=== PATIENT | male | born 1965 | race Caucasian/White ===

== ENCOUNTER 2021-11-03 15:25 | Emergency (ER) | payer OTHER, SELFPAY ==
[2021-11-03 15:27] VITALS: BP 134/75; PULSE 86; RESP 16; TEMP 38.2; O2SAT 96; BMI 38.0
--- NOTE | 2021-11-03 17:02 | EDS_ITS ---
HPI History of Present Illness Chief Complaint: Cough Informant: patient Onset/Context/Timing Onset: Weeks Context: gradual Timing: Continuous Current Severity: Mild Maximum Severity: Mild Worsened by: Coughing Relieved by: Nothing Associated Symptoms cough and fever Chest Pain: Positive for None Narrative Narrative: 56-year-old male prior colectomy for perforated colon. There home Covid test that was positive. States his symptoms started around Thanksgiving so he is day 10 of reported Covid. He has had fever chills myalgias. He has loose stools. Mild dyspnea. No hemoptysis. No abdominal pain. He is unvaccinated against Covid. 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 Cough and shortness of breath. Review of Systems ROS Unobtainable: Denies due to encephalopathy Constitutional Constitutional ED: Denies fever(s) Eyes Eyes: Denies change in vision ENT ENT ED: Denies ear pain Respiratory/Chest Respiratory/Chest: Reports cough and dyspnea Gastrointestinal Gastrointestinal: Reports diarrhea; Denies abdominal pain, nausea or vomiting Genitourinary Genitourinary ED: Denies dysuria Musculoskeletal Musculoskeletal: Reports myalgias Integumentary Denies rash Neurologic Neurologic: Denies headache(s) Psychiatric Psychiatric: Denies depression Endocrine Endocrinology: Denies polyuria Hematologic/Lymphatic Hematologic/Lymphatic: Denies easy bruising Allergic/Immunologic Allergic/Immunologic ED: Denies urticaria EXAM Physical Exam Narrative Exam Narrative: Well-appearing middle-aged male vital signs stable with a pulse ox 96% on room air no signs hypoxia. He does have a low-grade temperature 100.7. HEENT exam dry mucous memories. Neck nontender no lymphadenopathy. Lungs clear to auscultation bilaterally. Heart regular rhythm no murmur rate about 90. Abdomen soft nondistended normal bowel sounds no peritoneal signs. Healing midline incision from a colectomy. Colostomy bag right lower quadrant. No signs of obstruction. Moving all 4 extremities. No edema. Calves nontender. Neurologically is awake and alert. Moving all 4 extremities normal strength. Const Vital Signs: 11/03/21 15:27 11/03/21 16:32 11/03/21 18:00 Temperature 100.7 F H Temperature Source Oral Pulse Rate 86 83 Respiratory Rate 16 16 Respiratory Pattern Normal Blood Pressure 134/75 H 125/67 H Blood Pressure Mean 94 86 Pulse Ox 96 93 Oxygen Delivery Method Room Air Room Air Positive well nourished, well developed and obese; Negative for cachectic, contractures or unkempt General Appearance ED: well developed and NAD; Negative for unkempt, cachectic, contractures or pallor Nutritional Appearance: obese; Negative for cachectic HEENT Reports dry mucous membranes atraumatic; Negative for trauma Mouth ED: Yes dry mucous membranes Mouth: dry mucous membranes Eyes PERRL and EOMs intact bilaterally Neck no lymphadenopathy, supple, no meningeal signs and no JVD General: Negative for tenderness Resp normal respiratory effort and clear to auscultation bilaterally Auscultation: Negative for rales, rhonchi or wheezes Cardio regular rate, regular rhythm, S1 normal heart sound, S2 normal heart sound and no murmurs GI non-tender, non-distended and no masses GI Narrative: Healing midline colectomy incision. Right lower quadrant colostomy bag. Auscultation: normoactive bowel sounds Palpation: soft; Negative for tender, guarding or rebound tenderness present Back/Spine normal to inspection Extremity normal to inspection General Extremety ED: Negative for edema or tenderness General Extremity: Negative for edema Neuro oriented x3 Sensorium / Orientation: alert, oriented to person, oriented to place and oriented to time; Negative for orientation impaired, confused, lethargic or stuporous Motor Exam: strength 5/5 throughout Psych mental status grossly normal Appearance: Negative for unkempt Thought Process: normal thought process Skin no wounds General Skin Exam: Negative for jaundice or pallor Lesions: no lesions Rashes: no rashes MDM MDM MDM Narrative Medical decision making narrative: Middle-age male unvaccinated reportedly Covid now for for 8 days. He will be treated with IV fluids screening labs and chest x-ray. Vital signs are stable. Repeat exam patient is doing well. Discussed with the patient. He definitely has Covid but he is not hypoxic he is comfortable being discharged home and will be continued on Decadron. He will be referred to monoclonal antibody therapy because technically is 10-day will be Friday. Lab Data Attestation: I reviewed the patient's lab results. Lab results narrative: CBC shows a white count 3.9. Hemoglobin 14.2. Platelets 106. Electrolytes sodium 132 gap 6 normal BUN and creatinine. Glucose 113. Labs: Laboratory Results - last 24 hr 11/03/21 11/03/21 17:15 17:15 WBC 3.9 L RBC 5.07 Hgb 14.2 Hct 43.4 MCV 85.6 MCH 28.0 MCHC 32.7 RDW Std Deviation 43.9 RDW Coeff of Sally 14.1 Plt Count 106 L MPV 10.6 Immature Gran % (Auto) 0.300 Neut % (Auto) 68.1 Lymph % (Auto) 18.2 L [place] % (Auto) 12.8 H Eos % (Auto) 0.3 Baso % (Auto) 0.3 Absolute Neuts (auto) 2.7 Absolute Lymphs (auto) 0.71 L Nucleated RBC % 0 Sodium 132 L Potassium 4.1 Chloride 96 L Carbon Dioxide 30.0 Anion Gap 6 BUN 11 Creatinine 0.94 Estim Creat Clear Calc 89.52 Est GFR (MDRD) Af Amer 106 Est GFR (MDRD) Non-Af 87 BUN/Creatinine Ratio 11.6 Glucose 113 H Calcium 8.3 L Radiography Chest X-Ray - ED: 1 View, Read by ED Physician, Read by Radiologist, Right Infiltrate and Left Infiltrate Diagnostic Testing: Clinical Impression(s) from Imaging Studies Chest X-Ray 11/03/21 17:34 IMPRESSION: Extensive bilateral Covid pneumonia. Electronically Signed: Manuela Chiu MD at 18:02 EST Tel , Service support , Chest x-ray, portable, single view interpreted myself the radiologist shows Covid pneumonitis with bilateral patchy infiltrates. Discharge Plan Triage Chief Complaint: Cough ED Provider: Riley Crow Dx/Rx/DC Orders Clinical Impression: COVID-19 Instructions: Human Coronaviruses Prescriptions: New dexamethasone [Decadron] 6 mg tablet 6 mg PO DAILY 10 Days Qty: 10 RF: 0 Other Ambulatory Orders: COVID Outpatient Monoclonal Antibody Referral (Routine) Timeframe: 1 Day Facility: [facility] - Location: [facility] Ordered By: Dr. Riley Crow Primary Care Provider: Stacy Burt Referrals: Stacy Burt MD [Primary Care Provider] - 10-14 Days if not better Activity Restrictions/Additional Instructions: Plenty of fluids and rest. Daily Decadron which is a steroid to decrease inflammation in your lungs. Tylenol and Motrin for fever and body aches. Return if feeling worse or follow-up your primary care physician if not improving. Friday over the last day for you to potentially receive monoclonal antibody therapy. If they do not call you by 11:00 Friday morning call this emergency department and be connected to the monoclonal antibody center so we can potentially see if you are a candidate and have that done on Friday. Disposition Disposition: Home, Self Care
[2021-11-03] MEDS: 0.9% Normal Saline 1,000 ML 1000 ML IV (17:17)
[2021-11-03] MEDS: dexAMETHasone 10 MG/ML Vial IV (17:18)
[2021-11-03] MEDS: Acetaminophen 500 MG Tablet 1000 MG PO (17:23)
[2021-11-03 17:26] LABS: Absolute Lymphocyte Count 0.71 X10^3/uL (0.83-4.51); Absolute Neutrophil Count 2.7 X10^3/uL (2.0-7.7); Basophil# 0.01 X10^3/uL; Basophil% 0.3 % (0-1); Eosinophil# 0.01 X10^3/uL; Eosinophils% 0.3 % (0-5); Hematocrit 43.4 % (40-54); Hemoglobin 14.2 g/dL (13.0-16.5); Lymphocyte # 0.71 X10^3/ul (0.83-4.51); Lymphocyte % 18.2 % (19-41); Mean Corp Hgb Conc 32.7 g/dL (32-36); Mean Corpuscular Volume 85.6 fL (80-94); Mean Platelet Vol. 10.6 fl (6.2-12.0); Monocyte% 12.8 % (0-10); NRBC Flagged by Analyzer 0 % (0-5); Neutrophil # 2.67 X10^3/uL (2.7-7.7); Neutrophil % 68.1 % (47-70); Platelet Count 106 K/mm3 (150-450); RBC Distribution Width CV 14.1 % (11.6-14.6); RBC Distribution Width SD 43.9 fl (35.1-43.9); Red Blood Count 5.07 M/mm3 (4.6-6.2); White Blood Count 3.9 K/mm3 (4.4-11.0)
--- NOTE | 2021-11-03 17:34 | RAD_ITS ---
STUDY: X-RAY CHEST REASON FOR EXAM: Male, 56 years old. covid cough body aches TECHNIQUE: Frontal portable view of the chest COMPARISON: None. FINDINGS: Lungs have heterogeneous diffuse opacity. There is no pneumothorax, cardiac megaly or effusions. RAD/Chest 1 View (Portable) IMPRESSION: Extensive bilateral Covid pneumonia. Electronically Signed: Manuela Chiu MD at 18:02 EST Tel , Service support ,
[2021-11-03 17:40] LABS: Anion Gap 6 (5-15); BUN 11 mg/dL (7-18); BUN/Creat Ratio 11.6 RATIO (10-20); Calcium,Total 8.3 mg/dL (8.5-10.1); Chloride 96 mmol/L (98-107); Creatinine, Serum 0.94 mg/dL (0.70-1.30); EST Glomerular Filtration Rate 87 mL/min (>60); Est Glom Filt Rate - Afr Amer 106 mL/min (>60); Estimated Creatinine Clearance 89.52 ml/min; Glucose 113 mg/dL (74-106); Potassium 4.1 mmol/L (3.5-5.1); Sodium Level 132 mmol/L (136-145)
[2021-11-03 18:00] VITALS: BP 125/67; PULSE 83; RESP 16; O2SAT 93
== END 2021-11-03 19:38 | disposition home or self-care (01) ==
PROVIDERS: Emergency Provider Emergency Medicine; PCP Family Medicine Sports Medicine
DX: U07.1 COVID-19 (principal); J12.82 Pneumonia due to coronavirus disease 2019; Z28.3 Underimmunization status; E66.9 Obesity, unspecified; Z93.3 Colostomy status
CPT/HCPCS: 71045; 80048; 85025; 87426; 96361; 96374; 99284; J7030

== ENCOUNTER 2021-11-05 17:21 | Outpatient (CLI) | payer OTHER, SELFPAY ==
[2021-11-05] MEDS: 0.9% Saline Lock 10 ML Syringe IV (17:42)
[2021-11-05 17:43] VITALS: BP 126/76; PULSE 77; RESP 18; TEMP 37.3; O2SAT 96; BMI 38.0
[2021-11-05 18:36] VITALS: BP 125/80; PULSE 72; RESP 16; TEMP 37.2; O2SAT 97
[2021-11-05 19:26] VITALS: BP 123/85; PULSE 72; RESP 16; TEMP 37.4; O2SAT 98
== END 2021-11-05 19:36 | disposition home or self-care (01) ==
LOC: MS3OUT 17:21 → MS3 17:22
PROVIDERS: PCP Family Medicine Sports Medicine; Referring Provider Nurse Practitioner Adult Health; Visit Provider Nurse Practitioner Adult Health
DX: Z23 Encounter for immunization (principal); U07.1 COVID-19
CPT/HCPCS: J7050; M0245; Q0245; A4216